=== PATIENT | female | born 1965 | race Two or more races ===

== ENCOUNTER 2018-06-07 09:40 | Outpatient (CLI) | payer OTHER ==
[~2018-06-07 09:40] MED LIST: Methylergonovine 0.2mg/ml Inj IM ONE
== END 2018-06-07 11:40 | disposition home or self-care (01) ==
LOC: ECT 09:40
DX: F33.2 Major depressive disorder, recurrent severe without psychotic features (principal); F34.1 Dysthymic disorder; R73.03 Prediabetes; K21.9 Gastro-esophageal reflux disease without esophagitis; R45.851 Suicidal ideations